=== PATIENT | female | born 2000 | race Caucasian/White ===

== ENCOUNTER 2023-07-27 15:46 | Inpatient (IN) | payer BC, MEDICAID, SELFPAY ==
[2023-07-27] VITALS (12 sets, daily range): BP systolic 107–137; BP diastolic 76–84; PULSE 66–88; TEMP 36.6–37; O2SAT 99–100; BMI 39.6
--- NOTE | 2023-07-27 16:41 | ADMGEN ---
This patient, Denisse Abdi, was admitted to Labor/Delivery/Recovery 107-00. Patient/family oriented to hospital policies and general routines including ID bracelet, bed and alarms, visiting hours, pain management, procedures, bathroom and other care routines, personal items, smoking policy, room service/diet, and visiting hours. Information on how to activate the Rapid Response Team has been discussed. Patient/Family are encouraged to report perceived risks to care and to ask questions if they do not understand what they are told or what they should do.
[2023-07-27 17:03] LABS: Basophils Percent Auto 0.3 % (0.2-1.2); Eosinophils Percent Auto 0.3 % (0-4.4); Hematocrit 41.9 % (37.0-47.0); Hemoglobin 14.4 g/dL (12.0-15.0); Immature Granulocyte Absolute 0.06 K/mm3 (0.00-0.031); Immature Granulocyte Percent A 0.5 % (0-0.5); Lymphocytes Absolute Auto 2.53 K/mm3 (0.9-3.2); Lymphocytes Percent Auto 20.1 % (18.3-44.2); Mean Corpuscular HGB Conc 34.4 g/dl (32-36); Mean Corpuscular Hemoglobin 30.1 pg (26-34); Mean Corpuscular Volume 87.7 fl (80-100); Mean Platelet Volume 10.1 fl (7.4-10.4); Monocytes Absolute Auto 0.8 K/mm3 (0.1-0.6); Neutrophils Absolute Auto 9.2 K/mm3 (1.3-6.7); Neutrophils Percent Auto 72.8 % (45.5-73.1); Platelet Count Result 301 k/mm3 (150-375); Red Blood Count 4.78 M/mm3 (4.2-5.4); Red Cell Distribution Width 12.6 % (11.5-14.5); White Blood Count 12.6 K/mm3 (4.5-10.0)
[2023-07-28] VITALS (141 sets, daily range): BP systolic 92–156; BP diastolic 52–105; PULSE 59–185; RESP 18; TEMP 36.1–36.8; O2SAT 82–100
--- NOTE | 2023-07-28 05:16 | WPDANESEPPF ---
Anes - Initial Pre Proc Eval Procedure: Labor epidural Date/Time: 07/28/23 05:16 Surgeon: Carolyn De La Cruz MD Pre Op Diagnosis: Labor pain Pre Op Diagnosis: IOL Patient Data Age: 22 Gender: F Height: 1.7 m Weight: 115 kg Last Vital Signs Temp 36.6 C 07/28/23 00:00 Pulse 72 07/28/23 03:59 BP 141/85 H 07/28/23 03:59 Pulse Ox 99 07/27/23 16:22 O2 Del Method Room Air 07/27/23 16:36 Allergies Allergy/AdvReac Type Severity Reaction Status Date / Time No Known Allergies Allergy Verified 07/27/23 16:50 Home Medications Medication Instructions Recorded Confirmed Type aspirin 81 mg chewable tablet 81 mg PO DAILY 06/26/23 07/27/23 History vit with calcium-iron 60 tablet PO DAILY 06/26/23 07/27/23 History fum-folic acid 60 mg-0.8 mg tablet Laboratory Tests 07/27/23 16:50 WBC 12.6 H K/mm3 (4.5-10.0) RBC 4.78 M/mm3 (4.2-5.4) Hgb 14.4 g/dL (12.0-15.0) Hct 41.9 % (37.0-47.0) MCV 87.7 fl (80-100) MCH 30.1 pg (26-34) MCHC 34.4 g/dl (32-36) RDW 12.6 % (11.5-14.5) Plt Count 301 k/mm3 (150-375) MPV 10.1 fl (7.4-10.4) Immature Gran % (Auto) 0.5 % (0-0.5) Neut % (Auto) 72.8 % (45.5-73.1) Lymph % (Auto) 20.1 % (18.3-44.2) Butts % (Auto) 6.0 % (2.6-8.5) Eos % (Auto) 0.3 % (0-4.4) Baso % (Auto) 0.3 % (0.2-1.2) Lymph # (Auto) 2.53 K/mm3 (0.9-3.2) Butts # (Auto) 0.8 H K/mm3 (0.1-0.6) Eos # (Auto) 0.0 K/mm3 (0-0.3) Baso # (Auto) 0.0 K/mm3 (0.0-0.1) Abs Immat Gran (auto) 0.06 H K/mm3 (0.00-0.031) Absolute Neuts (auto) 9.2 H K/mm3 (1.3-6.7) Absolute Nucleated RBC 0.0 K/mm3 (0.0-0.012) Nucleated RBC % 0.0 % (0.0-0.2) RPR Pending Blood Type O Positive Antibody Screen Negative Patient hx anesthesia problems: none Family hx anesthesia problems: none Results Review: All pre-operative results and documents have been reviewed as part of the pre-operative evaluation. [facility] Family History Family History Grandparent Breast cancer Social History Social History Smoking status: Never smoker Substance use: never Lack of Transportation: No Lack of Food: Never True Current Housing: I Have Housing Concerned About Future Housing: No Difficulty Paying Gas/Electric Bills: No Difficulty Paying for Meds: No Currently Unemployed: No Education: High School Diploma/GED Difficulty w/ Childcare or Family Care: No Spiritual care concerns: No Anes - Eval Final PreProcedure Day of Procedure 07/28/23 05:16 Patient weight: obese Heart: regular rate and rhythm ASA classification: II Anesthetic plan: proceed Anesthesia type and monitoring: regional epidural and standard monitoring Results Review: All pre-operative results and documents have been reviewed as part of the pre-operative evaluation. Informed Consent: The patient's anesthetic plan and its attendant risks and benefits were discussed with the patient/family/POA. Questions were solicited and answers provided to the satisfaction of the patient/family/POA.
--- NOTE | 2023-07-28 07:45 | WPDOBADMIT ---
Obstetrics - Admit Note Admission Note: record reviewed. No pertinent additions to the history and/or any subsequent changes in the physical findings that are not consistent with the expected course of the were found. IOL, complicated by obesity, SVE /2 arom clear, odorless fluid, anticipate vaginal delivery Additions to the history and/or subsequent changes in the physical findings follow. None.
[2023-07-28] MEDS: LACTATED RINGERS 1,000 ML 125 ML IV CONT ×3 (07:58→16:53)
[2023-07-28] MEDS: OXYTOCIN 30 UNITS/NS 500 ML 30 UNITS/500 ML BAG 6 UNITS IV CONT (08:00)
[2023-07-28] MEDS: fentaNYL CITRATE INJ (*CRX) 100 MCG/2 ML VIAL 50 MCG IV PUSH (09:39)
[2023-07-28 10:57] LABS: Rapid Plasma Reagin Non-Reactive (NonReactive)
[2023-07-28] MEDS: ONDANSETRON INJ 4 MG/2 ML VIAL IV PUSH (17:19)
--- NOTE | 2023-07-28 18:33 | PM.OBPRVD ---
OB - Delivery Note Procedure Delivery date: 07/28/23 Procedure: Vacuum Induction method: AROM, Per Pitocin Protocol and Per Cervidil Protocol Delivery monitor: External FHT, External Uterine and Internal Uterine Route of delivery: Indication for instrumentation: nonreassuring FHR tracing Episiotomy description: Midline Delivery repair: vicryl Specimen: Yes Quantitative Blood Loss (ml): 85 Anesthesia type: Epidural Disposition: Floor Complications: pt comfortable with epidural and was pushing effectively, head at +1 station and heart rate deceleration into the 40's and 50's. dr. gilliland was called and orders for kiwi vacuum given. He then was in route to the hospital. consent obtained from the mother and father. Kiwi Vacuum applied and gentle traction with suction within optimal range. 1 pop off with head now +3 station. Midline episiotomy was made after patient consent.?With the patient's next contraction, the vacuum was reapplied and the baby's head was delivered to a +4 station. The vacuum was deflated and removed. The baby's head then delivered atraumatically. There was a tight nuchal cord and was reduced and a tight true knot. The baby's anterior shoulder delivered after a less than 30 second delay. No additional maneuvers were required to deliver the anterior shoulder. The posterior shoulder and remainder of the body delivered easily. The cord was clamped x2 and cut. The was handed to the nurse and moved to the warmer, business and marketing teacher at Baby Date of : 07/28/23 Time of : 18:04 Weeks of gestation at delivery: 40 gender: Male Weight (pounds): 5 Weight (ounces): 15 presentation: vertex position: Other (Occiput posterior) Cord Vessel Description: 3 Vessels, Nuchal Cord, True Knot, Tight and Reduced
[2023-07-28] MEDS: WITCH HAZEL 40 PADS 1 PAD TOPICAL (22:00)
[2023-07-28] MEDS: IBUPROFEN 600 MG TABLET PO (22:00)
[2023-07-28] MEDS: BENZOCAINE 20% AER SPR (*SP) 56 GM CAN 1 SPRAY TOPICAL (22:00)
[2023-07-29 04:00] VITALS: BP 126/79; PULSE 80; RESP 18; TEMP 36.4; O2SAT 97
--- NOTE | 2023-07-29 05:51 | PM.OBPNVD ---
OB - PN: Subj Subjective Date/time seen: 07/29/23 05:51 Interval history: pp day 1 vacuum extraction doing well baby with mom in room on D10 pt has no complaints OB - PN: Obj Data Labs 07/27/23 16:50 Labs: Laboratory Results - last 24 hr 07/27/23 16:50 RPR Non-reactive OB - PN A/P Plan day: 1 Time Spent With Patient Time: Total time spent is greater than 50% in coordination of care (as documented) at patient's floor/unit and/or counseling patient: Review of Systems Review of Systems: All systems reviewed & are unremarkable except as noted in HPI and below Exam Const: General: cooperative, healthy appearing and comfortable Chest: Chest palpation & inspection: normal inspection of the chest Resp: Effort & Inspection: normal respiratory effort Cardio: Rate: regular rate Rhythm: regular rhythm GI: Other: soft Skin: General skin exam: normal color Neuro: General: patient oriented x3 Extrem: Right lower extremity: edema Left lower extremity: edema Psych: Appearance: grossly normal
[2023-07-29 10:00] VITALS: BP 132/80; PULSE 76; RESP 18; TEMP 36.4
--- NOTE | 2023-07-29 11:38 | WPDANLDPN2 ---
Anes-Prog Note L&D Date/Time: 07/29/23 11:38 Comfortable throughout: labor and delivery Neuraxial method: epidural Epidural/Spinal procedure site: clean & non-tender Neuro status: Neuro function grossly intact. Cardiovascular status: normal Respiratory status: normal Airway patency: baseline Mental status: baseline Post-Op hydration status: normal Vital Signs: Last Vital Signs Temp 36.4 C L 07/29/23 04:00 Pulse 80 07/29/23 04:00 Resp 18 07/29/23 04:00 BP 126/79 07/29/23 04:00 Pulse Ox 97 07/29/23 04:00 O2 Del Method Room Air 07/27/23 16:36 Pain score (VAS): 3 I/O: Intake & Output 07/28/23 07/29/23 07/29/23 23:59 07:59 15:59 Intake Total 1000 Output Total 185 Balance 815 Post-procedural complaints: none Patient feedback: Patient satisfied with anesthetic care.
[2023-07-29 14:00] VITALS: BP 129/85; PULSE 86; RESP 18; TEMP 36.6
[2023-07-29] MEDS: IBUPROFEN 600 MG TABLET PO (14:06)
[2023-07-29] MEDS: MULTIVIT/MIN/PREN/FOL AC/IRON TABLET 1 TAB PO (14:06)
[2023-07-29 15:13] VITALS: BP 142/83; PULSE 84; RESP 18; TEMP 36.9; O2SAT 100
[2023-07-29 20:00] VITALS: BP 141/76; PULSE 74; RESP 18; TEMP 37.2; O2SAT 100
[2023-07-30] MEDS: IBUPROFEN 600 MG TABLET PO ×2 (00:40→10:33)
[2023-07-30 09:45] VITALS: BP 126/85; PULSE 81; RESP 16; TEMP 37.1
--- NOTE | 2023-07-30 09:47 | P.PNOB_ITS ---
OB - PN: Subj Subjective Date/time seen: 07/30/23 09:47 Interval history: pp day 2 vacuum extraction doing well pt has no complaints plan d/c home today OB - PN: Obj Data Labs 07/29/23 03:32 OB - PN A/P Plan day: 2 Plan: routine care and discharge home Time Spent With Patient Time: Total time spent is greater than 50% in coordination of care (as documented) at patient's floor/unit and/or counseling patient: Review of Systems 2 Review of Systems: All systems reviewed & are unremarkable except as noted in HPI and below Exam Const: General: cooperative and healthy appearing Chest: Chest palpation & inspection: normal inspection of the chest Cardio: Rate: regular rate Rhythm: regular rhythm GI: Other: soft Skin: General skin exam: normal color Neuro: General: patient oriented x3
--- NOTE | 2023-07-30 09:48 | P.DS_ITS ---
DS: Admitting Diagnosis Discharge Date 07/30/23 Admitting Diagnosis IOL DS: Discharge Diagnosis Discharge Diagnosis (1) Vacuum extraction, delivered, current hospitalization: Code(s): O75.9 - Complication of labor and delivery, unspecified Status: Acute OB - DS: Summary OB Procedures : None OB Procedures Intrapartum: Vacuum extraction OB Procedures: : None Time Spent with Patient Time attestation: Total time spent providing and/or coordinating discharge services: DS: Data Data Completed and Pending Pending studies at discharge: Pending at discharge 07/28/23 18:54 Surgical [PTH] Routine Discharge Plan Discharge Attending physician on discharge: Carolyn De La Cruz Discharging Clinician: Daniela Shen Patient Disposition: Home, Self-Care Activity: pelvic rest Diet: regular Patient Instructions: Antibiotic Form Stand Alone Forms: General Discharge Information Follow-up/Referrals: Daniela Shen CNM [Certified Nurse Scrap Preparation Supervisor] - 4 Weeks Discharge Medications: New ibuprofen 600 mg Tablet 600 mg PO Q6H PRN (Reason: Cramping) Qty: 30 0RF Continued Vitamin Formula 60-0.8 mg Tablet 60 tablet PO DAILY Discontinued aspirin [Baby Aspirin] 81 mg Tablet,Chewable 81 mg PO DAILY Date of admission: 07/27/23 15:46 Primary Care Provider: PHYSICIAN,MECHANICAL PROJECT MANAGER Admitting Provider: Carolyn De La Cruz Attending physician on admission: Carolyn De La Cruz Condition: Stable
[2023-07-30] MEDS: MULTIVIT/MIN/PREN/FOL AC/IRON TABLET 1 TAB PO (10:33)
[2023-08-02 11:24] VITALS: BP 129/97; PULSE 93; RESP 18; TEMP 37.4; O2SAT 99
== END 2023-07-30 14:30 | disposition home or self-care (01) | DRG 807 ==
LOC: ANHLDR 07-28 07:01 → ANHOB2 07-28 22:42
PROVIDERS: Advanced Practice Midwife; Admitting Provider Obstetrics & Gynecology; Visit Provider Obstetrics & Gynecology
DX: O99.214 Obesity complicating childbirth (principal); Z37.0 Single live birth; O69.1XX0 Labor and delivery complicated by cord around neck, with compression, not applicable or unspecified; Z3A.40 40 weeks gestation of pregnancy
CPT/HCPCS: 36415; 85014; 85018; 85025; 86592; 86850; 86900; 86901; 88307; A9270; J2405; J2590; J2795; J3010; J7120